=== PATIENT | female | born 1980 | race African-American/Black ===

== ENCOUNTER 2018-12-16 16:52 | Emergency (ER) | payer MEDICAID ==
[~2018-12-16] VITALS: Ht 152.4 cm; Wt 68.0 kg
[2018-12-16 16:55] VITALS: BP 130/80
[2018-12-16 17:10] VITALS: BP 130/80
--- NOTE | 2018-12-16 17:13 | NUR ---
BIB SELF C/O VAGINAL BLEEDING SINCE FRIDAY, SPOTTING AND CRAMPING SINCE NOVEMBER X 2 WEEKS, PT IS 4 WEEKS , [id number]. SEEN AT URGENT CARE AND INSTRUCTED TO COME TO ER FOR MORE RESOURCES.
--- NOTE | 2018-12-16 17:14 | NUR ---
U/S TECH AT BEDSIDE WITH PORTABLE ULTRA SOUND
[2018-12-16 17:36] LABS: BASOPHILS % (AUTO) 0.8 % (0.0-2.0); EOSINOPHILS % (AUTO) 0.3 % (0.0-4.0); HEMATOCRIT 40.4 % (36-48); HEMOGLOBIN 13.1 g/dL (12.0-16.0); LYMPHOCYTES # (AUTO) 2.9 K/uL (2.5-16.5); LYMPHOCYTES % (AUTO) 50.7 % (20.5-51.1); MEAN CORPUSCULAR HEMOGLOBIN 29 pg (27-31); MEAN CORPUSCULAR HGB CONC 32 g/dL (33-37); MEAN CORPUSCULAR VOLUME 88.1 fL (80-94); MONOCYTES # (AUTO) 0.3 K/uL (0.8-1.0); NEUTROPHILS # (AUTO) 2.4 K/uL (1.8-7.7); NEUTROPHILS % (AUTO) 42.2 % (42.2-75.2); PLATELET COUNT (AUTO) 258 K/uL (140-450); RED BLOOD CELL COUNT(AUTO) 4.58 MIL/uL (4.20-5.40); RED CELL DISTRIBUTION WIDTH 14.4 % (11.6-13.7); WHITE BLOOD COUNT (AUTO) 5.7 K/uL (4.8-10.8)
[2018-12-16 17:41] LABS: APPEARANCE,URINE CLEAR (CLEAR); BILIRUBIN,URINE NEGATIVE (NEGATIVE); BLOOD, URINE NEGATIVE (NEGATIVE); COLOR,URINE YELLOW (YELLOW); LEUKOCYTE ESTERASE ,URINE NEGATIVE (NEGATIVE); NITRITE, URINE NEGATIVE (NEGATIVE); UGLUCOSE NEGATIVE (NEGATIVE)
--- NOTE | 2018-12-16 18:03 | NUR ---
no needs stated at this time.
--- NOTE | 2018-12-16 19:05 | NUR ---
report given to Rafael for continued care. Patient stable.
--- NOTE | 2018-12-16 19:14 | NUR ---
REPORT RECEIVED FROM JESUS DELEON
--- NOTE | 2018-12-16 19:14 | NUR ---
Dr. Alan evaluating patient at bedside.
[2018-12-16] MEDS ORDERED: ACETAMINOPHEN EXTRA STRENGTH 500 MG TAB PO ONE (19:20)
--- NOTE | 2018-12-16 19:43 | NUR ---
Patient discharged with v/s stable. Written and verbal after care instructions given and explained. Patient verbalized understanding. Ambulatory with steady gait. All questions addressed prior to discharge. Advised to follow up with PMD.
== END 2018-12-16 19:43 | disposition home or self-care (01) ==
LOC: MED 16:52
DX: O03.9 Complete or unspecified spontaneous abortion without complication (principal); Z86.73 Personal history of transient ischemic attack (TIA), and cerebral infarction without residual deficits; Z88.1 Allergy status to other antibiotic agents; Z91.040 Latex allergy status
CPT/HCPCS: 36415; 76817; 81003; 81025; 84702; 85025; 86900; 86901; 99284; Q0092

== ENCOUNTER 2023-08-12 13:03 | Inpatient (IN) | payer MEDICAID ==
[~2023-08-12] VITALS: Ht 152.4 cm; Wt 74.8 kg
[2023-08-12] MEDS ORDERED: CARBOPROST 250 MCG/ML AMP IM PRN (14:00)
[2023-08-12] MEDS ORDERED: METHYLERGONOVINE 0.2 MG/ML AMP IM PRN ×2 (14:00→22:10)
[2023-08-12] MEDS: LACTATED RINGERS 1,000 ML IV SCH ×3 (14:30→19:13)
[2023-08-12] MEDS ORDERED: CLINDAMYCIN 900 MG in DEXTROSE 5% 100 ML IV SCH (15:00)
[2023-08-12] MEDS ORDERED: CLINDAMYCIN 900MG/D5W PM 50 ML IV SCH (15:00)
[2023-08-12 15:17] LABS: BASOPHILS % (AUTO) 0.4 % (0.0-2.0); EOSINOPHILS % (AUTO) 0.2 % (0.0-4.0); HEMOGLOBIN 11.8 g/dL (12.0-16.0); LYMPHOCYTES # (AUTO) 1.5 K/uL (2.5-16.5); LYMPHOCYTES % (AUTO) 28.8 % (20.5-51.1); MEAN CORPUSCULAR HEMOGLOBIN 31 pg (27-31); MEAN CORPUSCULAR HGB CONC 34 g/dL (33-37); MEAN CORPUSCULAR VOLUME 90.4 fL (80-94); MONOCYTES # (AUTO) 0.5 K/uL (0.8-1.0); MONOCYTES % (AUTO) 9.5 % (1.7-9.3); NEUTROPHILS # (AUTO) 3.2 K/uL (1.8-7.7); NEUTROPHILS % (AUTO) 61.1 % (42.2-75.2); PLATELET COUNT (AUTO) 175 K/uL (140-450); RED BLOOD CELL COUNT(AUTO) 3.87 MIL/uL (4.20-5.40); RED CELL DISTRIBUTION WIDTH 14.5 % (11.6-13.7); WHITE BLOOD COUNT (AUTO) 5.3 K/uL (4.8-10.8)
[2023-08-12 15:46] LABS: APPEARANCE,URINE CLEAR (CLEAR); BILIRUBIN,URINE NEGATIVE (NEGATIVE); BLOOD, URINE 2+ (NEGATIVE); COLOR,URINE YELLOW (YELLOW); LEUKOCYTE ESTERASE ,URINE TRACE (NEGATIVE); NITRITE, URINE NEGATIVE (NEGATIVE); PH,URINE 7.5 (5.0-9.0); PROTEIN,URINE 1+ (NEGATIVE); UGLUCOSE NEGATIVE (NEGATIVE); UROBILINOGEN,URINE 0.2 EU/dL (0.2 - 1)
[2023-08-12 15:50] LABS: INR 0.84 (0.8-1.2); PARTIAL THROMBOPLASTIN TIME 31.9 secs (22-35.6); PROTHROMBIN TIME 8.9 secs (10.8-13.4)
[2023-08-12 15:51] LABS: BACTERIA,URINE 1+ /HPF (None Seen); MUCUS,URINE 1+ /LPF (None Seen); TRICHOMONAS,URINE None Seen /HPF (None Seen); WBC,URINE 0-5 /HPF (0-5); YEAST,URINE None Seen /HPF (None Seen)
[2023-08-12 15:52] LABS: ALBUMIN 3.4 g/dL (3.4-5.0); ANION GAP 14.2 (8-16); CALCIUM 9.3 mg/dL (8.5-10.1); CARBON DIOXIDE 24.8 mmol/L (21-32); CREATININE 0.7 mg/dL (0.6-1.3); TOTAL BILIRUBIN 0.4 mg/dL (0.0-1.0); TOTAL PROTEIN, SERUM 6.9 g/dL (6.4-8.2)
[2023-08-12] MEDS ORDERED: MORPHINE SULFATE 10 MG/ML VIAL IVP PRN (16:50)
[2023-08-12] MEDS ORDERED: ONDANSETRON 4 MG/2 ML VIAL IVP PRN ×2 (16:50→23:35)
[2023-08-12] MEDS ORDERED: ROPIVACAINE 0.2%/NS PREMIX 200 ML EPI ONE (16:57)
[2023-08-12] MEDS ORDERED: PREN-537 PO (18:02)
[2023-08-12] MEDS ORDERED: TERBUTALINE 1 MG/ML VIAL SUBQ ONE (21:41)
[2023-08-12] MEDS ORDERED: TERBUTALINE 1 MG/ML VIAL SUBQ SCH (21:50)
[2023-08-12] MEDS ORDERED: KETOROLAC 30 MG/ML VIAL IVP PRN (22:10)
[2023-08-12] MEDS ORDERED: OXYTOCIN 20 UNITS in LACTATED RINGERS 1,000 ML IV SCH (22:10)
[2023-08-12] MEDS ORDERED: TEMAZEPAM 15 MG CAP PO PRN (22:10)
[2023-08-12] MEDS ORDERED: IBUPROFEN 800 MG TAB PO PRN (22:10)
[2023-08-12] MEDS ORDERED: LIDOCAINE/EPI MPF 2%1:200000 10 ML VIAL INJ ONE (22:23)
[2023-08-12] MEDS ORDERED: fentaNYL citrate 0.05 MG/ML VIAL ONE (22:23)
[2023-08-12] MEDS ORDERED: MORPHINE PRES FREE 5 MG/10 ML AMP IV ONE (22:23)
[2023-08-12] MEDS ORDERED: OXYTOCIN 20 UNITS/LR PREMIX 1,000 ML IV ONE (22:59)
[2023-08-12] MEDS ORDERED: NALOXONE 0.4 MG/ML VIAL IVP PRN (23:35)
[2023-08-12] MEDS ORDERED: KETOROLAC 60 MG/2 ML VIAL IM PRN (23:35)
[2023-08-12] MEDS ORDERED: diphenhydrAMINE 50 MG/ML VIAL IVP PRN ×2 (23:35)
[2023-08-13 05:41] LABS: HEMATOCRIT 30.3 % (36-48); HEMOGLOBIN 10.4 g/dL (12.0-16.0); LYMPHOCYTES # (AUTO) 0.6 K/uL (2.5-16.5); LYMPHOCYTES % (AUTO) 5.5 % (20.5-51.1); MEAN CORPUSCULAR HEMOGLOBIN 31 pg (27-31); MEAN CORPUSCULAR HGB CONC 34 g/dL (33-37); MEAN CORPUSCULAR VOLUME 90.4 fL (80-94); MONOCYTES # (AUTO) 0.8 K/uL (0.8-1.0); NEUTROPHILS # (AUTO) 9.7 K/uL (1.8-7.7); NEUTROPHILS % (AUTO) 87.5 % (42.2-75.2); PLATELET COUNT (AUTO) 147 K/uL (140-450); RED BLOOD CELL COUNT(AUTO) 3.35 MIL/uL (4.20-5.40); RED CELL DISTRIBUTION WIDTH 14.3 % (11.6-13.7); WHITE BLOOD COUNT (AUTO) 11.1 K/uL (4.8-10.8)
[2023-08-13] MEDS: SIMETHICONE 80 MG TAB.CHEW PO PRN ×2 (09:57→13:50)
[2023-08-13] MEDS ORDERED: OXYTOCIN 20 UNITS/LR PREMIX 1,000 ML IV ONE (14:05)
[2023-08-13] MEDS: oxyCODONE/APAP 5/325 MG 1 TAB TAB PO PRN (19:43)
[2023-08-13] MEDS: DOCUSATE SOD/SENNA 50/8.6 MG 1 TAB PO SCH (21:33)
[2023-08-14] MEDS: oxyCODONE/APAP 5/325 MG 1 TAB TAB PO PRN ×4 (02:25→20:57)
[2023-08-14] MEDS: DOCUSATE SOD/SENNA 50/8.6 MG 1 TAB PO SCH (21:00)
[2023-08-15] MEDS: oxyCODONE/APAP 5/325 MG 1 TAB TAB PO PRN ×2 (04:27→13:12)
[2023-08-15] MEDS ORDERED: CAMERA MC ONE (11:55)
== END 2023-08-15 15:30 | disposition home or self-care (01) | DRG 540 ==
LOC: MLD 13:03 → MFCC 08-13 00:21
PROVIDERS: ADMIT Obstetrics & Gynecology; ATTEND Obstetrics & Gynecology
PROC: 10D00Z1 Extraction of Products of Conception, Low, Open Approach (ICD-10-PCS; principal; 2023-08-12 22:15)
DX: O76 Abnormality in fetal heart rate and rhythm complicating labor and delivery (principal); R71.0 Precipitous drop in hematocrit; Z20.822 Contact with and (suspected) exposure to COVID-19; Z37.0 Single live birth; Z3A.38 38 weeks gestation of pregnancy
CPT/HCPCS: 36415; 51702; 80053; 81001; 85025; 85610; 85730; 86592; 86886; 86900; 86901; J1885; J2001; J2590; J2795; J3010; J3105; J3490; J7060; J7120